=== PATIENT | male | born 1960 | race Caucasian/White ===

== ENCOUNTER 2019-05-12 17:55 | Inpatient (IN) ==
[2019-05-12] MEDS ORDERED: KETOROLAC 30 MG/1 ML VIAL IV STA (19:08)
[2019-05-12] MEDS ORDERED: SODIUM CHLORIDE 0.9% 1,000 ML IV STA (19:12)
[2019-05-12 19:30] LABS: Basophils # 0.2 10*3/uL (0.0-0.2); Basophils % 1.8 % (0.0-0.8); Eosinophils # 0.2 10*3/uL (0.0-0.87); Eosinophils % 1.7 % (0.00-10.9); Hematocrit 43.1 VOL% (42.0-52.0); Hemoglobin 14.7 GM/DL (14.0-18.0); Immature Granulocytes % 0.5 %; Immature Granulocytes Absolute 0.04 #; Lymphocytes # 3.1 10*3/uL (1.4-4.0); Lymphocytes % 34.9 % (21.2-54.2); Mean Corpuscular HGB Conc 34.1 GM/DL (32-36); Mean Corpuscular Volume 96.6 FL (87-102); Mean Platelet Volume 10.3 FL (9.6-12.0); Monocytes % 6.1 % (1.7-12.7); Platelet Count 323 T/CUMM (130-400); Red Blood Count 4.46 MC/CUMM (3.8-5.5); Red Cell Distribution Width 11.8 % (9.3-17.3); White Blood Count 8.7 T/CUMM (4-12)
[2019-05-12 19:42] LABS: Albumin 3.6 G/DL (3.4-5.0); Bilirubin,Total 0.6 MG/DL (0.2-1.0); Calcium 8.9 MG/DL (8.5-10.1); Osmolality,Calculated 279.5 MOS/KG (273-304)
[2019-05-12] MEDS ORDERED: MORPHINE 4 MG/1 ML VIAL IV STA (20:01)
[2019-05-12] MEDS ORDERED: ONDANSETRON 4 MG/2 ML VIAL IV ONE (20:01)
[2019-05-12 20:22] LABS: Apearance,Urine CLEAR (Clear); Bacteria,Urine Occasional /HPF (Few); Bilirubin,Urine Negative (Negative); Blood, Urine Negative (Negative); Glucose,Urine (UA) Negative (Negative); Ketones,Urine 5 mg/dL (Negative); Mucus,Urine Occasional /LPF (Occasional); Nitrite,Urine Negative (Negative); Protein,Urine Negative; RBC,Urine 5 /HPF (0-4); Squamous Epithelial Cell,Urine Occasional /HPF (0-10); Urine Color Yellow (Yellow); Urine Specific Gravity 1.024 (1.001-1.035); WBC,Urine 7 /HPF (0-6)
[2019-05-12 20:24] LABS: Barbiturates Screen,Urine Negative (Negative); Benzodiazepines Screen,Urine Negative (Negative); Cannabinoid Screen,Urine Negative (Negative); Opiate Screen,Urine Negative (Negative); Phencyclidine Screen,Urine Negative (Negative)
[2019-05-12] MEDS ORDERED: ONDANSETRON 4 MG/2 ML VIAL IV PRN (20:46)
[2019-05-12] MEDS: MORPHINE 4 MG/1 ML VIAL IV PRN (23:00)
[2019-05-12] MEDS ORDERED: INFLUENZA VIRUS VACCINE 0.5 ML SYRINGE IM ONE (23:07)
[2019-05-12] MEDS: THIAMINE INJ 100 MG, FOLIC ACID INJ 1 MG, MULTIVITAMIN INJ 10 ML in SODIUM CHLORIDE 0.9... IV SCH (23:08)
[2019-05-13] MEDS ORDERED: LORazepam 2 MG/1 ML VIAL IV PRN (02:57)
[2019-05-13] MEDS: MORPHINE 4 MG/1 ML VIAL IV PRN ×5 (03:05→19:56)
[2019-05-13] MEDS ORDERED: NICOTINE 21 MG/24 HR PATCH TRANSDERM PRN (05:05)
[2019-05-13 06:25] LABS: Basophils # 0.1 10*3/uL (0.0-0.2); Basophils % 1.1 % (0.0-0.8); Eosinophils # 0.2 10*3/uL (0.0-0.87); Eosinophils % 1.9 % (0.00-10.9); Hematocrit 40.8 VOL% (42.0-52.0); Hemoglobin 13.5 GM/DL (14.0-18.0); Immature Granulocytes % 0.3 %; Immature Granulocytes Absolute 0.04 #; Lymphocytes # 3.2 10*3/uL (1.4-4.0); Lymphocytes % 26.5 % (21.2-54.2); Mean Corpuscular HGB Conc 33.1 GM/DL (32-36); Mean Corpuscular Volume 98.3 FL (87-102); Mean Platelet Volume 9.8 FL (9.6-12.0); Monocytes % 9.1 % (1.7-12.7); Neutrophils % 61.1 % (38.7-73.9); Platelet Count 302 T/CUMM (130-400); Red Blood Count 4.15 MC/CUMM (3.8-5.5); Red Cell Distribution Width 11.9 % (9.3-17.3); White Blood Count 12.2 T/CUMM (4-12)
[2019-05-13 06:29] LABS: Albumin 3.1 G/DL (3.4-5.0); Bilirubin,Total 1.8 MG/DL (0.2-1.0); Calcium 8.4 MG/DL (8.5-10.1); Osmolality,Calculated 274.8 MOS/KG (273-304); Total Protein 6.9 G/DL (6.4-8.3)
[2019-05-13] MEDS: SODIUM CHLORIDE 0.9% 1,000 ML IV SCH ×4 (06:35→20:01)
[2019-05-13] MEDS ORDERED: POTASSIUM CHLORIDE 20 MEQ TABLET PO PRN (09:33)
[2019-05-13] MEDS ORDERED: POTASSIUM CHLORIDE 20 MEQ TABLET PO ONE (09:33)
[2019-05-13] MEDS: LORazepam 2 MG/1 ML VIAL IV PRN ×2 (13:11→19:58)
[2019-05-13] MEDS: MUPIROCIN 2% OINT 22 GM TUBE TOP SCH ×2 (13:11→21:15)
[2019-05-13] MEDS ORDERED: BUPIVACAINE 0.5% 50 ML VIAL ONE (15:20)
[2019-05-13] MEDS ORDERED: BUPIVACAINE MPF 0.25% 30 ML VIAL ONE (15:23)
[2019-05-13] MEDS ORDERED: VANCOMYCIN 1,000 MG VIAL ONE (17:11)
[2019-05-13] MEDS ORDERED: TRANEXAMIC ACID 1,000 MG/10 ML VIAL ONE ×2 (17:11→18:58)
[2019-05-13] MEDS ORDERED: ceFAZolin 1,000 MG VIAL ONE (17:11)
[2019-05-13] MEDS ORDERED: ONDANSETRON 4 MG/2 ML VIAL ONE (18:56)
[2019-05-13] MEDS ORDERED: PHENYLEPHRINE DRIP 20 MG/250 ML PREMIX IV ONE (18:56)
[2019-05-13] MEDS ORDERED: SEVOFLURANE 1 UNIT/15 MINUTE INH ONE (18:56)
[2019-05-13] MEDS ORDERED: propofoL 200 MG/20 ML VIAL IV ONE (18:56)
[2019-05-13] MEDS ORDERED: LIDOCAINE 2% 5 ML VIAL ONE (18:56)
[2019-05-13] MEDS ORDERED: fentaNYL 100 MCG/2 ML VIAL ONE (18:56)
[2019-05-13] MEDS ORDERED: MIDAZOLAM 2 MG/2 ML VIAL ONE (18:56)
[2019-05-13] MEDS ORDERED: KETOROLAC 30 MG/1 ML VIAL ONE (18:57)
[2019-05-13] MEDS ORDERED: ROCURONIUM 100 MG/10 ML VIAL IV ONE (18:57)
[2019-05-13] MEDS ORDERED: GLYCOPYRROLATE 0.4 MG/2 ML VIAL ONE (18:57)
[2019-05-13] MEDS ORDERED: ACETAMINOPHEN 1,000 MG/100 ML VIAL IV ONE (18:57)
[2019-05-13] MEDS ORDERED: SUCCINYLCHOLINE 200 MG/10 ML VIAL ONE (18:57)
[2019-05-13] MEDS ORDERED: NEOSTIGMINE 10 MG/10 ML VIAL ONE (18:57)
[2019-05-13] MEDS ORDERED: PHENYLEPHRINE 1 MG/10 ML SYRINGE IV ONE (18:57)
[2019-05-13] MEDS: ASPIRIN 325 MG TABLET PO SCH (21:14)
[2019-05-13] MEDS: THIAMINE INJ 100 MG, FOLIC ACID INJ 1 MG, MULTIVITAMIN INJ 10 ML in SODIUM CHLORIDE 0.9... IV SCH (21:15)
[2019-05-13] MEDS: oxyCODONE/ACETAMINOPHEN 5-325 MG TABLET PO PRN (22:03)
[2019-05-14] MEDS: ceFAZolin 2,000 MG in PREMIX 1 EACH IV SCH ×2 (01:43→09:56)
[2019-05-14 05:03] LABS: Basophils % 0.2 % (0.0-0.8); Hematocrit 38.6 VOL% (42.0-52.0); Hemoglobin 12.9 GM/DL (14.0-18.0); Immature Granulocytes % 0.4 %; Immature Granulocytes Absolute 0.06 #; Lymphocytes # 0.9 10*3/uL (1.4-4.0); Lymphocytes % 6.1 % (21.2-54.2); Mean Corpuscular HGB Conc 33.4 GM/DL (32-36); Mean Corpuscular Volume 98.7 FL (87-102); Mean Platelet Volume 9.9 FL (9.6-12.0); Monocytes % 6.1 % (1.7-12.7); Neutrophils % 87.2 % (38.7-73.9); Platelet Count 267 T/CUMM (130-400); Red Blood Count 3.91 MC/CUMM (3.8-5.5); Red Cell Distribution Width 11.6 % (9.3-17.3); White Blood Count 14.9 T/CUMM (4-12)
[2019-05-14] MEDS: LORazepam 2 MG/1 ML VIAL IV PRN ×5 (05:06→21:34)
[2019-05-14] MEDS: MORPHINE 4 MG/1 ML VIAL IV PRN ×5 (05:07→21:34)
[2019-05-14 05:24] LABS: Osmolality,Calculated 269.2 MOS/KG (273-304)
[2019-05-14] MEDS: VANCOMYCIN INJ 1,000 MG in SODIUM CHLORIDE 0.9% 250 ML IV SCH ×2 (05:41→18:05)
[2019-05-14] MEDS: ASPIRIN 325 MG TABLET PO SCH ×2 (08:57→21:18)
[2019-05-14] MEDS: MUPIROCIN 2% OINT 22 GM TUBE TOP SCH ×2 (09:57→21:18)
[2019-05-14] MEDS: THIAMINE INJ 100 MG, FOLIC ACID INJ 1 MG, MULTIVITAMIN INJ 10 ML in SODIUM CHLORIDE 0.9... IV SCH (21:18)
[2019-05-15] MEDS: LORazepam 2 MG/1 ML VIAL IV PRN ×2 (02:33→09:08)
[2019-05-15] MEDS: MORPHINE 4 MG/1 ML VIAL IV PRN ×2 (02:34→09:04)
[2019-05-15 08:20] LABS: Basophils # 0.1 10*3/uL (0.0-0.2); Basophils % 0.7 % (0.0-0.8); Eosinophils # 0.2 10*3/uL (0.0-0.87); Eosinophils % 1.2 % (0.00-10.9); Hematocrit 42.4 VOL% (42.0-52.0); Immature Granulocytes % 0.4 %; Immature Granulocytes Absolute 0.06 #; Lymphocytes # 2.9 10*3/uL (1.4-4.0); Lymphocytes % 21.2 % (21.2-54.2); Mean Corpuscular Volume 98.1 FL (87-102); Mean Platelet Volume 9.8 FL (9.6-12.0); Monocytes % 8.1 % (1.7-12.7); Neutrophils % 68.4 % (38.7-73.9); Platelet Count 286 T/CUMM (130-400); Red Blood Count 4.32 MC/CUMM (3.8-5.5); Red Cell Distribution Width 11.7 % (9.3-17.3); White Blood Count 13.6 T/CUMM (4-12)
[2019-05-15] MEDS: ASPIRIN 325 MG TABLET PO SCH (08:51)
[2019-05-15] MEDS: MUPIROCIN 2% OINT 22 GM TUBE TOP SCH (08:52)
[2019-05-15 12:17] VITALS: BP 127/58
[2019-05-15] MEDS: oxyCODONE/ACETAMINOPHEN 5-325 MG TABLET PO PRN (14:26)
== END 2019-05-15 15:00 | disposition home or self-care (01) | DRG 470 ==
LOC: EDUNIT# → EDBD → N.EDINP 17:55 → N.ED 17:55 → N.3E 22:20
PROVIDERS: ADMIT Orthopaedic Surgery; ATTEND Orthopaedic Surgery